=== PATIENT | male | born 2000 | race Caucasian/White ===

== ENCOUNTER 2023-08-04 13:20 | Emergency (ER) | payer OTHER ==
[~2023-08-04] VITALS: Ht 167.6 cm; Wt 84.5 kg
[2023-08-04 13:20] VITALS: BP 153/74; TEMP 98.2; O2SAT 98
[2023-08-04] MEDS: IBUPROFEN 600MG TAB PO ONE (15:16)
== END 2023-08-04 15:33 | disposition left against medical advice (07) ==
LOC: M ED 14:24
DX: S02.652A Fracture of angle of left mandible, initial encounter for closed fracture (principal); Y92.9 Unspecified place or not applicable; Y93.9 Activity, unspecified; Y99.9 Unspecified external cause status; F10.10 Alcohol abuse, uncomplicated; Z53.9 Procedure and treatment not carried out, unspecified reason